=== PATIENT | female | born 1965 | race Caucasian/White ===

== ENCOUNTER 2023-06-23 13:56 | Outpatient (OUT) | payer OTHER, SELFPAY ==
--- NOTE | 2023-06-23 | CONS_ITS ---
CONSULTATION DATE: 06/23/2023 TO: Dr. Lundberg CHIEF COMPLAINT: Includes left hip pain. HISTORY: She reports the pain started spontaneously a few months ago. She now reports pain occurring at a level of approximately 5-7/10 pain when she walks for one mile. She needs to sit after walking one mile to help relieve her pain symptoms. Otherwise, her pain becomes progressive and has been unresponsive to ibuprofen 600 mg up to t.i.d. She denies any change in bowel and bladder habits or new sensorimotor changes in the lower extremities. EXAM: Her examination is notable for patient having no clinical radiculopathy or myelopathy involving the lower extremities. She had a negative FABERE?s sign; however, when performing left hip flexion with internal rotation, patient did have some groin pain on the left side. She did also have associated spasm of the left piriformis muscle. She appeared to have no involvement involving the gluteus medius. IMPRESSION: Our impression is patient has pain secondary to possible left hip pain, possibly related to a labral tear. She requests to proceed in a conservative route. RECOMMENDATIONS: We, therefore, recommend she consider starting meloxicam 15 mg p.o. daily to b.i.d., aquatic therapy and to discontinue her ibuprofen for the time being. She is to follow up with our office via telephone in one month?s time or sooner if needed. If she has no response with physical therapy with the use of meloxicam, may consider proceeding with an MRI of her left hip. As part of providing excellent, safe, comprehensive care, the following was completed at our patient's visit: 1. A medication reconciliation and review to ensure accurate knowledge of current/active medications, including asking our patients to inform us about any vvud-ryy-zpzyxdt medications or herbal remedies/nutritional supplements/alternative remedies. 2. A review to specifically ensure our patients have had annual screening for: elevated body mass index (BMI, see intake chart for exact total), tobacco use, screening for depression, and screening for unhealthy alcohol use. When screening is concerning, patients are provided with education and the specific recommendation to discuss the concerning health issue and treatment options with their primary care provider. JEAN PIERRE
== END 2023-06-23 13:57 | disposition home or self-care (01) ==
PROVIDERS: PCP Family Medicine; Visit Provider Anesthesiology Pain Medicine
DX: M25.552 Pain in left hip (principal)
CPT/HCPCS: G0463

== ENCOUNTER 2023-09-02 06:44 | Outpatient (OUT) | payer OTHER, SELFPAY ==
--- NOTE | 2023-09-02 06:46 | MR_ITS ---
The [address] [address] Patient Name: ANTONIO DAY MRN: [facility]:[id number] date: 1965 Sex: F Assigned Patient Location: MRI Current Patient Location: Accession/Order Number: [id number] Exam Date: 09/02/2023 06:50 Report Date: 09/03/2023 07:24 At the request of: SACIHN GARNETT Procedure: MR hip LT wo con EXAMINATION: MR hip LT wo con HISTORY: Left Hip Pain, Osteoarthritis COMPARISON: Plain x-ray 06/17/2023 TECHNIQUE: A comprehensive examination was performed utilizing a variety of imaging planes and imaging parameters to optimize visualization of suspected pathology. Images were performed without contrast. FINDINGS: FEMORAL HEAD: Normal. No AVN, fracture, or significant arthropathy. ACETABULUM: Normal. No fracture or significant arthropathy. OTHER BONES: Normal appearance of the visualized portion of the pelvis. LABRUM: Normal appearance for a patient in this age group, with no visible tear. EFFUSIONS: None. No synovitis or loose bodies. BURSAE: Normal. No evidence of iliopsoas or trochanteric bursitis. TENDONS: Normal. Normal gluteus tendons, iliopsoas tendon, and hamstring origin. MUSCLES: Normal. No tear or strain. No inappropriate atrophy. OTHER: 3 cm lesion identified in the lower uterine segment/cervix best seen on axial image #22 with peripheral soft tissue signal in central heterogeneous fluid signal MR/MR hip LT wo con IMPRESSION: No acute abnormality of the hip Lower uterine segment/cervix 3 cm cystic lesion with a thick wall. Further characterization with pelvic ultrasound is recommended Electronically authenticated by: ANOOP ALONZO Date: 09/03/2023 07:24
== END 2023-09-02 06:45 | disposition home or self-care (01) ==
LOC: MRI 06:44
PROVIDERS: PCP Family Medicine; Visit Provider Anesthesiology Pain Medicine
DX: M25.552 Pain in left hip (principal)
CPT/HCPCS: 73721

== ENCOUNTER 2023-09-11 12:57 | Outpatient (OUT) | payer OTHER, SELFPAY ==
--- NOTE | 2023-09-11 13:03 | US_ITS ---
The [address] [address] Patient Name: ANTONIO DAY MRN: [id number] date: 1965 Sex: F Assigned Patient Location: Current Patient Location: Accession/Order Number: [id number] Exam Date: 09/11/2023 13:04 Report Date: 09/12/2023 08:43 At the request of: GINNY BROWN Procedure: US pelvis w/ transvaginal EXAM: Pelvic ultrasound HISTORY: . Uterine Lesion N85.9 . COMPARISON: None. TECHNIQUE: Transabdominal and transvaginal scanning was performed FINDINGS: Scanning of the uterus demonstrates a retroverted uterus measuring 6.5 x 3.2 x 3.7 cm. Myometrium is heterogeneous in its echotexture. Endometrial complex measures 2 mm. Scanning of the cervix demonstrates a 1.4 x 1.3 x 0.5 cm cystic area in the cervix. Neither ovary was identified. No fluid was noted in the cul-de-sac. US/US pelvis w/ transvaginal IMPRESSION: 1. Normal-appearing retroverted uterus and normal endometrial complex. 2. There is a cystic structure within the cervix. Findings could represent a nabothian cysts. An inflammatory mass or neoplasm cannot entirely be excluded. Clinical correlation is suggested. 3. Neither ovary was identified. Electronically authenticated by: ANOOP LOU Date: 09/12/2023 08:43
--- OUTSIDE RECORDS SUMMARY | 2023-09-11 13:09 | XMS_ITS ---
Patient Summarization (C-CDA 2.1 CCD) Created on: September 11, 2023 EMA YANES : 1965 Sex: Female Author Organization Sample organization Care Team Providers Care Information Technology Intern Name Role Phone CHAYA NAJERA Attending Unavailab le Rosanna, Miguel Primary Care Unavailable XU, CHAYA ROCA Attending Unavailab le Rosanna, Miguel Primary Care Unavailable VALONE, MIGUEL UP Consulting Unavailabl e XU, CHAYA ROCA Attending Unavailab le Valone, Miguel Up [facility] Unavailabl e CHAYA NAJERA Consulting UnavailVILLA Linder Attending Unavaila ble Valone, Miguel Up [facility] Unavailabl e VILLA GLOVER Attending Unavaila ble Valone, [facility] Unavailabl e TU PRETTY Consulting Unavailable VALONE, MIGUEL UP Consulting Unavailabl e GLOVERVILLA BARRETO Attending Unavaila ble Valone, Miguel [facility] Unavailabl e VALONEMIGUEL Consulting Unavailabl e PROVIDER, UNKNOWN Admitting Unavailable PROVIDER, UNKNOWN Attending Unavailable PATIENT, SELF Referring Unavailable PROVIDER, UNKNOWN Admitting Unavailable PROVIDER, UNKNOWN Attending Unavailable PATIENT, SELF Referring Unavailable YESENIA GONZALEZ Admitting Unavailable YESENIA GONZALEZ Attending Unavailable YESENIA GONZALEZ Referring Unavailable PROVIDER, UNKNOWN Admitting Unavailable PROVIDER, UNKNOWN Attending Unavailable PATIENT, SELF Referring Unavailable PROVIDER, UNKNOWN Admitting Unavailable PROVIDER, UNKNOWN Attending Unavailable PATIENT, SELF Referring Unavailable YESENIA GONZALEZ Admitting Unavailable YESENIA GONZALEZ Attending Unavailable YESENIA GONZALEZ Referring Unavailable Kiran Tony Primary Care Physician [facility] Primary Care Unavailable Jorge A Menendez Attending Unavailable Jorge A Menendez Admitting Unavailable JORGE A MENENDEZ Attending Unavailable FADUMO CAST Attending Unavailable FADUMO CAST Referring Unavailable JORGE A MENENDEZ Attending Unavailable SACHIN GARNETT Referring Unava ilable KAFTAN JR, FADUMO R Primary Care Unavailable LAKSHMIPATHY, NARENDRANATH Referring Unava hiramable LYNNMATT JR, FADUMO R Primary Care Unavailable LAKSHMIPATHY, NARENDRANATH Referring Unava ilable ERICASHANTI JR, FADUMO R Primary Care Unavailable LAKSHMIPATHY, NARENDRANATH Referring Unava hiramable SEGUN JR, FADUMO R Primary Care Unavailable Angel Lundberg Attending Unavailable Angel Lundberg Admitting Unavailable Allergies Allergy Classification Reported Allergen(s) Allergy Type Date of Onset Reaction(s) Facility (1 source) Acetaminophen / HYDROcodone; Translations: [Vicodin] Drug Allergy [facility] Repository (1 source) carvedilol; Translations: [Coreg] Drug Allergy [facility] Repository (1 source) Acetaminophen / HYDROcodone; Translations: [HYDROCODONE-ACET AMINOPHEN] [facility] (2 sources) carvedilol; Translations: [CARVEDILOL] [facility] ([facility] sources) Lisinopril; Translations: [LISINOPRIL] Drug All[facility] Rep[facility] (2 sources) Adhesive Tape; Translations: [Tape] Drug allergy Unknown (qualifier value) [facility] (2 sources) Clarithromycin; Translations: [clarithromycin] Drug Allergy Unknown (qualifier value) [facility] (2 sources) levoFLOXacin; Translations: [levofloxacin] Drug Allergy Unknown (qualifier value) [facility] Encounters Encounter Date Encounter Type Care Provider Facility Start: 09-08-2023 End: 09-08-2023 ambulatory Angel Lundberg Facility[facility] Start: 08-31-2023 ambulatory [facility]ATH [facility] Start: 08-06-2023 End: 08-06-2023 ambulatory FADUMO CAST Not Available Start: 07-28-2023 End: 08-22-2023 [facility] Start: 06-24-2023 End: 07-22-2023 [facility] Start: 06-17-2023 End: 06-17-2023 ambulatory [facility]ENDRANATH [facility] Start: 02-23-2023 End: 02-23-2023 ambulatory JORGE A Vijay ITZMICHELLEWITZ Not Available Start: 02-23-2023 End: 02-23-2023 ambulatory Howard Mast [facility] Facility:[facility] Start: 02-05-2023 End: 02-05-2023 ambulatory JORGE A H ITZKOWITZ Not Available Start: 11-07-2021 End: 11-07-2021 Lab Drop off Angel Lundberg [facility] Start: 11-21-2019 End: 11-21-2019 Patient encounter procedure UNKNOWN PROVIDER Facility:[facility] Start: 11-14-2019 End: 11-14-2019 Patient encounter procedure YESENIA GONZALEZ Facility:[facility] Start: 11-02-2019 Patient encounter procedure UNKNOWN PROVIDER Facility:[facility] Start: 10-12-2019 End: 10-12-2019 Patient encounter procedure UNKNOWN PROVIDER Facility:[facility] Start: 10-03-2019 End: 10-03-2019 Patient encounter procedure YESENIA GONZALEZ Facility:[facility] Start: 09-14-2019 End: 09-14-2019 Patient encounter procedure UNKNOWN PROVIDER Facility:[facility] Start: 01-19-2019 End: 01-19-2019 [facility] Start: 01-12-2019 End: 01-13-2019 Patient encounter procedure [facility] Facility:[facility] Start: 01-11-2019 Patient encounter procedure VILLA [place] [place] Facility:[facility] Start: 12-30-2018 End: 12-30-[address] Facility:[facility] Start: 12-08-[address] [facility] Facility:[facility] Start: 11-23-2018 End: 11-24-[address] [facility] Facility:[facility] Immunizations Immunization Date Immunization Notes Care Provider Fa cility 06-20-2020 SARS-CoV-2 (COVID-19 ) mRNA BNT-162b2 alpesh Lundberg [facility] 05-23-2020 SARS-CoV-2 (COVID-19 ) mRNA BNT-162b2 alpesh Lundberg [facility] Medications Current Medications Medication Drug Class(es) Dates Sig (Normalized) Sig (Original) ALPRAZolam 1 mg disintegrating oral tablet (1 source) Benzodiazepine Start: 1 take 1 tablet by mouth three times daily as needed for anxiety alprazolam 1 mg oral tablet, disintegrating 1 mg = 1 tab(s), Oral, TID, PRN for anxiety, Refills(s) 0 Start Date: 10/15/20 Status: Ordered Biotin (1 source) Start: 1 biotin Oral, Daily, Refills(s) 0 Start Date: 10/15/20 Status: Ordered calcium carbonate 1625 mg / cholecalciferol 0.0125 mg / vitamin k 0.04 mg chewable tablet (1 source) Vitamin D Start: 1 Viactiv Soft Calcium Chews oral tablet Refill(s) 0 Start Date: 10/15/20 Status: Ordered Centrum Silver (1 source) Start: 1 Centrum Silver Oral, Daily, Refill(s) 0 Start Date: 10/15/20 Status: Ordered D3 (1 source) Start: 1 take 1 ug by mouth once daily D3 mcg, Oral, Daily, Refills(s) 0 Start Date: 10/15/20 Status: Ordered escitalopram 20 mg oral tablet (1 source) Serotonin Reuptake Inhibitor Start: 1 take 1 mg by mouth once daily escitalopram 20 mg Tab mg tab(s), Oral, Daily, Refills(s) 0 Start Date: 10/15/20 Status: Ordered estradiol 0.1 mg/ml vaginal cream (1 source) Estrogen Start: 1 estradiol 0.1 mg/g vaginal cream 1 gm, Vaginal, MonWedFri, # 42.5 gm, Refills(s) 6, [facility]: [facility], 155, cm, 10/15/20 12:39:00 EDT, Height/Length Dosing, 66, kg, 10/15/20 12:39:00 EDT, Weight Dosing Start Date: 10/15/20 Status: Ordered hydroCHLOROthiazide 12.5 mg / irbesartan 150 mg oral tablet (1 source) Thiazide Diuretic, Angiotensin 2 Receptor Keila Start: 1 take 1 tablet by mouth once daily hydrochlorothiazid e-irbesartan 12.5 mg-150 mg Tab tab(s), Oral, Daily, Refill(s) 0 Start Date: 10/15/20 Status: Ordered levothyroxine sodium 0.1 mg oral tablet (1 source) l-Thyroxine Start: 1 take 1 tablet by mouth once daily levothyroxine 100 mcg (0.1 mg) Tab mcg tab(s), Oral, Daily, Refills(s) 0 Start Date: 10/15/20 Status: Ordered omeprazole 40 mg delayed release oral capsule (1 source) Proton Pump Inhibitor Start: 1 take 1 mg by mouth once daily omeprazole 40 mg Cap-DR mg cap(s), Oral, Daily, Refills(s) 0 Start Date: 10/15/20 Status: Ordered sucralfate 1000 mg oral tablet (1 source) Aluminum Complex Start: 1 sucralfate 1 g Tab gm tab(s), Oral, QIDACHS, Refills(s) 0 Start Date: 10/15/20 Status: Ordered tiZANidine 4 mg oral tablet (1 source) Central alpha-2 Adrenergic Agonist Start: 1 take 1 mg by mouth every eight hours tiZANidine 4 mg Tab mg tab(s), Oral, q8hr, Refills(s) 0 Start Date: 10/15/20 Status: Ordered traMADol hydrochloride 50 mg oral tablet (1 source) Opioid Agonist Start: 1 take 1 mg by mouth every six hours traMADOL 50 mg Tab mg tab(s), Oral, q6hr, Refills(s) 0 Start Date: 10/15/20 Status: Ordered vitamin B12 (1 source) Vitamin B12 Start: 1 Vitamin B12 Refills(s) 0 Start Date: 10/15/20 Status: Ordered Completed/Discontinued Medications Medication Drug Class(es) Dates Sig (Normalized) Sig (Original) cephalexin 500 mg oral capsule (1 source) Cephalosporin Antibacterial Start: 10-15-2020 take 1 capsule by mouth once daily Keflex 500 mg Cap 500 mg = 1 cap(s), Oral, BID, Take 1 cap twice a day for 5 days and then 1 cap once a day, # 40 cap(s), Refills(s) 0, Pharmacy: [facility], 155, cm, 10/15/20 12:39:00 EDT, Height/Length Dosing, 66, kg, 10/15/20 12:39:00 EDT, Weight Dosing Start Date: 10/15/20 Status: Ordered Payers Date Payer Category Payer Self-pay 2019 Private Health Insurance [id number] 2019 Private Health Insurance [id number] 2019 Private Health Insurance [id number] 2018 Unknown 1965 Unknown [id number] 2.16.8 40.1.564051.3.579.2. 1965 Unknown [id number] 2.16.8 40.1.566596.3.579.2. 1965 Unknown [id number] 2.16.8 40.1.607055.3.579.2. 1965 Unknown [id number] 2.16.8 40.1.762537.3.579.2. 1965 Unknown [id number] 2.16.8 40.1.892998.3.579.2. 1965 Unknown [id number] 2.16.8 40.1.441354.3.579.2. 1965 Unknown [id number] 2.16. 840.1.229010.3.579.2. 1965 Unknown [id number] 2.16. 840.1.433871.3.579.2. 1965 Unknown [id number] 2.16. 840.1.097956.3.579.2. 1965 Unknown [id number] 2.16. 840.1.433739.3.579.2.732 1965 Unknown [id number] 2.16. 840.1.200294.3.579.2.732 1965 Unknown [id number] 2.16. 840.1.173812.3.579.2.732 1965 Unknown [id number] 2.16.84 0.1.408872.3.579.2.1259 1965 Unknown [id number] 2.16.840 .1.830032.3.579.2.1259 1965 Unknown [id number] 2.16.840 .1.855548.3.579.2.1259 1965 Unknown [id number] 2.16.8 40.1.086681.3.579.2.1286 1965 Unknown [id number] 2.16.8 40.1.368959.3.579.2.6 1965 Unknown [id number] 2.16.8 40.1.692203.3.579.2.1286 1965 Unknown [id number] 2.16.8 40.1.153040.3.579.2.1286 1965 Unknown [id number] 2.16.8 40.1.479936.3.579.2.727 Unknown [id number] 2.16.8 40.1.210109.3.579.2.531 Problems Problem Classification Problem Date Documented Date Episodic/Chronic Disorders of lipid metabolism (1 source) Hypercholesterolemia 10-15-2020 Chronic Essential hypertension (1 source) Hypertensive disorder 10-15-2020 Chronic Glaucoma (1 source) Glaucoma 10-15-2020 Chronic Headache; including migraine (1 source) Headache 10-15-2020 Episodic Mood disorders (1 source) Depressive disorder 10-15-2020 Chronic Osteoarthritis (1 source) Arthritis 10-15-2020 Chronic Other and unspecified benign neoplasm (1 source) Polyp of colon; Translations: [Polyp of colon] Onset: 3 Episodic Other liver diseases (1 source) Disease of liver 10-15-2020 Chronic Other non-traumatic joint disorders (1 source) Pain in left hip; Translations: [Pain in left hip] Onset: Episodic Substance-related disorders (1 source) Smoker 10-15-2020 Chronic Comment on above: Added secondary to d ocumentation in Social History. Thyroid disorders (1 source) Hyperthyroidism 10-15-2020 Chronic Procedures Date Procedure Procedure Detail Performing Clinician Start: 10-12-2019 SURGICAL CASE REQUEST U NKNOWN PROVIDER Start: 09-14-2019 SURGICAL CASE REQUEST U NKNOWN PROVIDER Bypass of stomach Angel fatima Colonoscopy Angel Lundberg Extraction of cataract Angel Lundberg H/O: hysterectomy Angel fatima History of cholecystectomy J torinrichi Lundberg Procedure on back Angel fatima Tonsillectomy Angel Lundberg Results Test Name Value Interpretation Reference Range Facility Physician Orderon 09-09-2023 Physician Order [id number] Normal [facility] XR HIP LT 2-3 VIEWS W OR WO PELVISon 06-19-2023 XR HIP LT 2-3 VIEWS W OR WO PELVIS XR HIP LT 2-3 VIEWS W OR WO PELVIS HISTORY: A 57-year-old female with the history of the left hip pain for 2 months. TECHNIQUE: AP view of pelvis with left hip: 3 views COMPARISON: No relevant prior studies are available for comparison. FINDINGS: There is no evidence of fracture, dislocation or acute bony pathology. There are degenerative changes in the lumbar spine. Both sacroiliac joints are intact. Both ischio-pubic rami are intact. Both hip joints are intact. No bony destruction is seen. IMPRESSION: * No evidence of fracture, bony destruction or acute bony pathology. * Both hip joints are intact. * Degenerative arthritis in the lower lumbar spine. Finalized by Daniel Nunez MD on 06/19/2023 5:44 PM Normal [facility] 02-23-2023 L ---- Specimen: [id number] Received: 02/23/23 Status: MINA Pendleton Num: [id number] Spec Type: Surgical Subm Dr: Jorge A Menendez DO Tissues: A Colon Biopsy (POLYP HEPATIC FLEXURE) B Colon Biopsy (POLYP ASC) Procedures: MARIO/Quin Perez/Danyell L4/2 Age/ Patient Sex Location Account Attending Physician Ema Yanes/F SHAWNA [id number] Jorge A Menendez DO SPEC NUM: [id number] RECD: 02/23/23 STATUS: MINA PENDLETON NUM: [id number] RENÉ: 02/23/23- SUBM DR: Jorge A Menendez DO ENTERED: 02/23/23 [facility] DR: Alejandro [facility] SPEC TYPE: Surgical DEPT: S ORDERED: HE/4, Gross/Micro L4/2 ORDERED: HE/4, Gross/Micro L4/2 Pathological Diagnosis A. Colon, hepatic flexure, polyp, biopsy: - Tubular adenoma B. Colon, ascending, polyp, biopsy: - Tubular adenoma Clinical Information Family history of colon cancer Gross Description A. Received in formalin labeled with the patient's name, date of and polyp hepatic flexure is one mccullough tissue measuring 0.5 x 0.2 x 0.2 cm admixed with fecal material. Entirely submitted in one cassette labeled A1. B. Received in formalin labeled with the patient's name, date of and polyp ascending colon is one mccullough tissue measuring 0.3 cm, admixed with fecal material. Entirely submitted in one cassette labeled B1. Specimen: [id number] Received: 02/23/23 Status: MINA Pendleton Num: [id number] Spec Type: Surgical Subm Dr: Jorge A Menendez DO Tissues: A Colon Biopsy (POLYP HEPATIC FLEXURE) B Colon Biopsy (POLYP ASC) Procedures: HE/4, Gross/Micro L4/2 Patient: Ema Yanes [id number] (Continued) Specimen: [id number] Received: 02/23/23 (Continued) Signed (signature on file) Yomi Lester MD 02/25/23 0948 Specimen: [id number] Received: 02/23/23 Status: MINA Pendleton Num: [id number] Spec Type: Surgical Subm Dr: Jorge A Menendez DO Tissues: A Colon Biopsy (POLYP HEPATIC FLEXURE) B Colon Biopsy (POLYP ASC) Procedures: MARIO/Chris, Quin/Micro L4/2 Patient: Ema Yanes [id number] (Continued) Specimen: [id number] Received: 02/23/23 (Continued) Microscopic Description A. Two H E slides reviewed. The microscopic examination confirms the diagnosis. B. Two H E slides reviewed. The microscopic examination confirms the diagnosis. CPT Codes 44790i2 Specimen: [id number] Received: 02/23/23 Status: MINA Keerthi Num: [id number] Spec Type: Surgical Subm Dr: Jorge A Menendez DO Tissues: A Colon Biopsy (POLYP HEPATIC FLEXURE) B Colon Biopsy (POLYP ASC) Procedures: MARIO/Chris, Gross/Micro L4/2 Patient: Ema Yanes [id number] (Continued) Signed (signature on file) Yomi Lester MD 02/25/23 0948 [facility] Neurosurgery [place] 03-09-2019 Neurosurgery Office/Clinic Note Chief Complaint PT STATES- POST OP (01/19 LUMBAR MICRODISC) History of Present Illness Patient is a pleasant 53-year-old female with a history of hypertension and hyperlipidemia, who presents to the outpatient neurosurgical clinic today for continued postoperative follow-up. Patient is status post left L5-S1 MIS microdiscectomy performed 01/19/[address] Glover secondary to a large interannular disc herniation at left L5-S1 with resultant intractable left S1 radiculopathy. Patient has done well postoperatively and experienced a grossly uncomplicated postoperative course. Today, patient reports complete resolution of her preoperative left lower extremity radicular pain syndrome. Since time of last office visit, she has completed a course of postoperative physical therapy without difficulty and remains very pleased with her outcome. She denies significant low back pain. She denies gluteal pain or lower extremity radicular pain. She denies numbness or paresthesias in the lower extremities. She denies motor weakness in the lower extremities. She denies bowel/bladder incontinence or saddle paresthesias. Patient denies incisional pain or incisional problems. She denies headaches. She denies fevers, chills, nausea, or vomiting. She states her appetite and energy level are good. Patient is no longer requiring narcotic support. Review of Systems Constitutional: [No fevers, chills, sweats] Eye: [No recent visual problems] Respiratory: [No shortness of breath, cough] Vascular: [No edema, erythema, discoloration] Cardiovascular: [No Chest pain, palpitations, syncope] Neuro: [No headaches, dizziness] Gastrointestinal: [No nausea, vomiting, diarrhea] Genitourinary: [No hematuria] Physical Exam Vitals & Measurements BP: 122/78 HT: 162 cm WT: 72 kg DOSE WT: 72 kg BMI: 27.43 Additional Vitals No qualifying data available. General: [Alert and oriented, well nourished, no acute distress]. Eye: [normal conjunctiva, no scleral icterus]. HENT: [normocephalic, atraumatic, oral mucosa pink and moist, dentition intact]. Neck: [Supple]. Pulmonary: [non-labored respiration]. Cardiovascular: [no edema, strong pulses with rapid capillary refill]. Skin: [Normal temperature and texture; no rashes; no digit clubbing or cyanosis]. Psychiatric: [Appropriate judgment and insight, appropriate mood and affect]. Lumbar incision is well-healed without surrounding erythema, edema, induration, or tenderness to palpation. Good approximation of incision borders without drainage or dehiscence. Lumbosacral and gluteal regions are without significant myospasms. No tenderness to palpation. Good range of motion of the lumbosacral spine without pain. No lumbar neurotension signs with negative straight leg raise, reverse straight leg raise, and femoral stretch test bilaterally. Muscle strength is 5/5 and equal bilateral lower extremities. DTRs are 2 out of 4 and equal bilateral lower extremities. Gait is normal with full ability to toe and heel walk. Assessment/Plan 1. Status post lumbar surgery 2. Lumbar disc herniation 3. Lumbar radiculopathy At this time, patient is approximately 7 weeks postop from left L5-S1 MIS microdiscectomy. She has done well postoperatively with resolution in her preoperative left lower extremity radicular syndrome and is very pleased with her outcome. Her incision has healed well without suggestion of infectious complications and she has completed a course of postoperative physical therapy without difficulty. That said, patient will be released to return to a moderate adult lifestyle. She is encouraged to avoid lifting/pushing/pulling more than 30-40 pounds and to avoid extreme activities. Patient is reminded that she may continue to shower, but should avoid submerging her incision in water such as pools, bath tubs, or hot tubs for a minimum of 8 weeks postoperatively. Patient will be released to follow up in our office on an as-needed basis, but is encouraged to call with changes, problems, or concerns. Patient states understanding and is in agreement with the above-stated plan. Patient's case is discussed with Dr. Glover who is in agreement with the above-stated plan. Problem List/Past Medical History Ongoing Abnormal Pap smear of cervix Allergic rhinitis Degenerative disc disease, lumbar Hypercholesterolemia Hypertension Lumbar disc herniation Lumbar radiculopathy Seasonal allergies Snores Status post lumbar surgery Historical No qualifying data Procedure/Surgical History Ambulatory surgery Check colonoscopy (2012) Lumbar/Sacral Transforaminal Epidural Steroid Injection (Left) (12/14/2018) Lumbar/Sacral Transforaminal Epidural Steroid Injection (Left) (12/30/2018) Discectomy Lumbar-MIS (Left) (01/19/2019) Medications Flonase, Nasal, Daily, PRN folic acid, 0.4 mg, Oral, Daily Lipitor 40 mg oral tablet, 40 mg, 1 tabs, Oral, Daily multivitamin, Daily Norvasc 2.5 mg oral tablet, 2.5 mg, 1 tabs, Oral, Daily Singulair 10 mg oral tablet, 10 mg, 1 tabs, Oral, Daily, PRN Vitamin C, Daily Allergies Coreg (heart race) Vicodin (Itching) Social History Alcohol Current, 1-2 times per month 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 Exercise Exercise type: Walking. Home/Environment Lives with Spouse. Living situation: Home/Independent. 1 CAT Nutrition/Health Regular, Caffeine intake amount: DENIES. Sleeping concerns: No. Sexual History of sexual abuse: No. Substance Abuse Denies All Tobacco Never (less than 100 in lifetime) Use:. Family History Alzheimer's disease: Mother. Cancer of colon: Mother. Skin cancer: Father. Diagnostic Results No qualifying data available (XRay) No qualifying data available (CT) No qualifying data available (Ultrasound) No qualifying data available (MRI) Electronically signed by _ Anna Beard PA-C 03/09/19 11:[address] [facility] Provider Letteron 03-09-2019 Provider Letter (Inserted Image. Lisa ble to display) Miguel Marte, [address] [place] [address] Re: Ema Yanes Date of Visit: 03/09/2019 Dear Miguel Marte, Thank you for referring Ema to our office. Attached you will find my office note and my findings. Please let me know if you have any questions or concerns. Sincerely, Anna Beard PA-C [facility] [address] The following document(s) were included in the letter: March 09, 2019 11:22:31 EST - (03/09/2019) Office Visit Note Letter Sent Electronically signed by _ Shaniqua Ochoa 03/09/19 13:[address] [facility] Neurosurgery [place] 02-09-2019 Neurosurgery Office/Clinic Note Chief Complaint PT STATES- POST OP 01/19 LUMBAR MICRODISC) History of Present Illness Patient is a pleasant 53-year-old female with a history of hypertension and hyperlipidemia, who presents to the outpatient neurosurgical clinic today accompanied by her , for postoperative follow-up. Patient is status post left L5-S1 MIS microdiscectomy performed 01/19/[address] Glover secondary to a large interannular disc herniation at left L5-S1 with resultant intractable left S1 radiculopathy. Patient has done well postoperatively and experienced a grossly uncomplicated postoperative course. She did contact our office in the postoperative period (01/24/19) with complaints of bruised sensation in the left posterior calf/popliteal fossa prompting recommendations for a left lower extremity venous Doppler. This was completed 01/24/19 was negative for DVT. Today, patient states she is doing well and is very pleased with her progress. She reports resolution of her preoperative left lower extremity radicular pain syndrome. She denies significant low back pain. She denies gluteal pain or lower extremity radicular pain. She denies numbness or paresthesias in the lower extremities. She denies motor weakness in the lower extremities. She denies bowel/bladder incontinence or saddle paresthesias. Patient denies incisional pain or incisional problems. She denies headaches. She denies fevers, chills, nausea, or vomiting. She states her appetite and energy level are good. Patient is no longer requiring narcotic support. Review of Systems Constitutional: [No fevers, chills, sweats] Eye: [No recent visual problems] Respiratory: [No shortness of breath, cough] Vascular: [No edema, erythema, discoloration] Cardiovascular: [No Chest pain, palpitations, syncope] Neuro: [No headaches, dizziness] Gastrointestinal: [No nausea, vomiting, diarrhea] Genitourinary: [No hematuria] Physical Exam Vitals & Measurements BP: 124/72 HT: 162 cm WT: 70 kg DOSE WT: 70 kg BMI: 26.67 Additional Vitals No qualifying data available. General: [Alert and oriented, well nourished, no acute distress]. Eye: [normal conjunctiva, no scleral icterus]. HENT: [normocephalic, atraumatic, oral mucosa pink and moist, dentition intact]. Neck: [Supple]. Pulmonary: [non-labored respiration]. Cardiovascular: [no edema, strong pulses with rapid capillary refill]. Skin: [Normal temperature and texture; no rashes; no digit clubbing or cyanosis]. Psychiatric: [Appropriate judgment and insight, appropriate mood and affect]. Lumbar incision is well-healed without surrounding erythema, edema, induration, or tenderness to palpation. Good approximation of incision borders without drainage or dehiscence. Lumbosacral and gluteal regions are without significant myospasms. No tenderness to palpation. Good range of motion of the lumbosacral spine without pain. No lumbar neurotension signs with negative straight leg raise, reverse straight leg raise, and femoral stretch test bilaterally. Muscle strength is 5/5 and equal bilateral lower extremities. DTRs are 2 out of 4 and equal bilateral lower extremities. Gait is normal with full ability to toe and heel walk. Assessment/Plan 1. Status post lumbar surgery Ordered: Referral to Physical Therapy 2. Lumbar radiculopathy Ordered: Referral to Physical Therapy 3. Lumbar disc herniation Ordered: Referral to Physical Therapy Orders: External Referral At this time, patient is approximately 3 weeks postop from left L5-S1 MIS microdiscectomy. She has done well postoperatively with resolution in her preoperative left lower extremity radicular syndrome and is very pleased with her progress thus far. Her incision has healed well without suggestion of infectious complications. That said, patient will be released to sit, drive, and lift up to 10 pounds. She is encouraged to continue to ambulate, but should not participate in any heavier physical activities and walking. 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 Patient is reminded that she may continue to shower, but should avoid submerging her incision in water such as pools, bath tubs, or hot tubs for a minimum of 8 weeks postoperatively. Patient will be referred for a course of postoperative physical therapy. She will follow up in our office in 4-5 weeks, but is to call sooner changes, problems, or concerns. Patient states understanding and is in agreement with the above-stated plan. Patient's case is discussed with Dr. Glover who is in agreement with the above-stated plan. Problem List/Past Medical History Ongoing Abnormal Pap smear of cervix Allergic rhinitis Degenerative disc disease, lumbar Hypercholesterolemia Hypertension Lumbar disc herniation Lumbar radiculopathy Seasonal allergies Snores Status post lumbar surgery Historical No qualifying data Procedure/Surgical History Ambulatory surgery Check colonoscopy (2012) Lumbar/Sacral Transforaminal Epidural Steroid Injection (Left) (12/14/2018) Lumbar/Sacral Transforaminal Epidural Steroid Injection (Left) (12/30/2018) Discectomy Lumbar-MIS (Left) (01/19/2019) LOW BACK DISK SURGERY (01/19/2019) Medications Flonase, Nasal, Daily, PRN folic acid, 0.4 mg, Oral, Daily gabapentin 100 mg oral capsule, 1-2 caps, Oral, HS (at bedtime) Lipitor 40 mg oral tablet, 40 mg, 1 tabs, Oral, Daily multivitamin, Daily Norvasc 2.5 mg oral tablet, 2.5 mg, 1 tabs, Oral, Daily Singulair 10 mg oral tablet, 10 mg, 1 tabs, Oral, Daily, PRN Vitamin C, Daily Allergies Coreg (heart race) Vicodin (Itching) Social History Alcohol Current, 1-2 times per month 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 Exercise Exercise type: Walking. Home/Environment Lives with Spouse. Living situation: Home/Independent. 1 CAT Nutrition/Health Regular, Caffeine intake amount: DENIES. Sleeping concerns: No. Sexual History of sexual abuse: No. Substance Abuse Denies All Tobacco Never (less than 100 in lifetime) Use:. Family History Alzheimer's disease: Mother. Cancer of colon: Mother. Skin cancer: Father. Diagnostic Results No qualifying data available (XRay) No qualifying data available (CT) No qualifying data available (Ultrasound) No qualifying data available (MRI) Electronically signed by _ Anna Beard PA-C 02/09/19 14:[address] [facility] Provider Letteron 02-09-2019 Provider Letter (Inserted Image. Lisa ble to display) Miguel Marte, [facility] [place] [address] Re: Ema Joaquín Date of Visit: 02/09/2019 Dear Miguel Marte, Thank you for referring Ema to our office. Attached you will find my office note and my findings. Please let me know if you have any questions or concerns. Sincerely, Anna Beard PA-C [facility] [address] [address] The following document(s) were included in the letter: February 09, 2019 14:29:00 EST - (02/09/2019) Office Visit Note Letter sent Electronically signed by _ Elaine Thornton 02/10/19 09:[address] [facility] Operative Reporton 10-30-201 9 Operative Report Indication for Surge ry Intractable left S1 radiculopathy secondary to large interannular disc herniation left L5-S1 Preoperative Diagnosis Same Postoperative Diagnosis Same Operation Left L5-S1 lumbar microdiscectomy; minimally invasive surgical technique using MysteryDrix tubular retractor 5 cm ?22 mm; microscope for microdissection Surgeon(s) Villa Glover Rough Rice Grader Molly FRITZ Anesthesia General anesthetic via endotracheal tube Estimated Blood Loss . 20 mL Urine Output None Findings Large interannular disc herniation with ventral impingement of the S1 root along the majority of its course from shoulder to pedicle Specimen(s) None-grossly normal degenerated disc Complications None Technique History: Very pleasant 53-year-old female who presents to the neurosurgery clinic with a several month history of progressively worsening left S1 radiculopathy. She is strongly positive neurotension signs and decreased tone at the ankle as well as depressed Achilles reflex but maintained motor power. In light of the failure of conservative measures, patient is strongly interested in definitive measures. She is made aware of the above-mentioned procedure and the risks thereof including the risk of procedure including infection, bleeding, CSF leak, neurologic injury, neuropathic pain syndrome, peridural fibrosis, failure for improvement, incomplete benefit, new neurologic deficit, spinal instability, coma, , paralysis, deep venous thrombosis, pulmonary embolism as well as recurrent disc herniation and reoperation, either delayed or acute. Patient is in strong agreement and wished to proceed-written consent was obtained Procedure: Patient is brought into the operating room and general anesthetic is induced through atraumatically placed endotracheal tube. Venous access is secured and patient was turned onto [facility] operative table with a Cb frame and placed in the prone position. Head and neck are placed in neutral position and arms are placed on arm boards with neurovascular bundles unencumbered. Lumbar region is cleaned with alcohol and dried and 18-gauge spinal needles placed adjacent to level of interest. Flouroscopy is confirmatory for level and proposed skin incision is scribed 1.5 cm to the left of midline straddling the L5-S1 interspace. Excess hair is clipped with electric clippers. Patient received IV antibiotics. Surgical region is prepped and draped in usual fashion. After appropriate side, site, patient identified in timeout maneuver is performed, full-thickness skin incision is carried down to the thoracolumbar fascia using 10 bladed knife and monopolar cautery. Fascia is incised using cutting current monopolar cautery. Blunt end of the K wire is passed to the interlaminar space of L5-S1, left side. Serial dilation using Metrix dilators is then performed until a 5 cm ? 22 mm diameter tubular retractor can be docked at the lamino- facet complex of L5-S1, left side. This is attached to table mounted Armature. Muscular plug is removed with monopolar cautery and pituitary rongeur. Microscope was brought in for microdissection requirements. Fluoroscopy is confirmatory for level. High-speed electric drill was used to perform a generous laminotomy of L5 as well as a medial facetectomy involving the medial quarter of the inferior articular process of L5. This demonstrates ligamentum flavum which is detached from the superior leading edge of the S1 lamina which then undergoes laminotomy laterally to the pedicle of S1 and then cephalad to resect the medial quarter of the superior articular process of S1. Ligamentum flavum is elevated with right angle hook and removed in piecemeal fashion using Kerrison punch of 2 and 3 mm in size. Then, careful dissection immediately lateral to the root identifies venous epidural plexus which is controlled using low current bipolar cautery and division with microscissors. This allows for mobilization of the nerve root medial using Asst. with bayoneted nerve root retractor so as to allow identification of large interannular disc protrusion causing marked ventral elevation and impingement on the S1 nerve root. Once sufficiently medialized, the root was protected and the microscissors was used to incise the annulus which then allows a right angle hook to liberate and thereby deliver a 1.3 x 1.4 cm herniated mass of nucleus pulposis which is removed using pituitary rongeur. Several small fragments in the subannular space are identified and removed which decompress his neural elements. A 6-8 mm horizontal tear in the annulus is discovered with direct medication into the nucleus, therefore internal decompression is not performed with a variety of pituitary rongeur and all immanently herniatable material is thereby removed, mitigating reherniation syndrome. Once loose material is removed, disc space is irrigated with antibody solution to wash any loose material out and none is encountered. Epidural space is explored and no further extrinsic compression on the neural elements are found. The wound is copiously irrigated with 500 mL of antibiotic solution. Powdered vancomycin is then tested over the epidural space and tubular retractor was slowly withdrawn using bipolar cautery to control any muscular bleeding and all hemostatic agents removed. Surgical tract is dusted with powdered vancomycin. Fascia is reapproximated using 0 Vicryl in interrupted fashion. Subcutaneous tissues are reirrigated and dusted with powdered vancomycin followed by closure using 0 Vicryl and 3-0 Vicryl in inverted interrupted fashion. Marcaine, half percent with epinephrine, is infiltrated in the subcutaneous tissues followed by sterile dressing. Patient is then turned onto awaiting operative gurney and extubated and taken recovery for monitoring. No known complications of surgery. This surgical procedure was assisted by my physician?s cosmetic sales assistant. Her presence was needed throughout the case for manipulation and positioning the surgical arm as well as positioning the surgical instruments as well as primarily assisting me through procedure. Due to the complexity of condition, the skill set of an neurosurgical physician cosmetic sales assistant was needed throughout the case. During the surgical case, the opthalmic tech was working the back table and was not available for assistance. Tourniquet Time None Sponge/Needle Count Per nursing correct Fluid Count 1300 mL crystalloid Electronically signed by _ Adalberto HODGE MD, [facility] Roca 01/19/19 10:[address] [facility] Provider Letteron 01-19-2019 Provider Letter (Inserted Image. Lisa ble to display) Miguel Marte, [address] [place] [address] Re: Ema Yanes Date of Visit: 01/19/2019 Dear Miguel Marte, Let me know if you have any questions or concerns. Sincerely, Villa Glover III MD C C Providers: The following document(s) were included in the letter: January 19, 2019 10:03:54 EDT - (01/19/2019) Neurosurgery operative note Normal [facility] XR Spine Lumbosacral 1 View in ORon 01-19-2019 XR Spine Lumbosacral 1 View in OR Procedure: Intraoperative lumbar spine fluoroscopy. Images: Two lateral intraoperative fluoroscopic image holds of the lumbar spine. Fluoroscopy: Three seconds (1.9 mGy). Clinical Information: 53-year-old female with left lumbar microdiscectomy. Comparison: Lumbar spine radiographs 11/23/2018. Findings: Bones: No gross subluxation at L4-5 or L5-S1. Intervertebral discs: Intact height at L4-5 and L5-S1. Facet joints: Grossly mild to moderate L4-5 and L5-S1 degenerative osteoarthrosis. Soft tissues: Surgical hardware in the posterior soft tissues at the level of L5-S1. IMPRESSION: Intraoperative changes of the lumbar spine. Final Dictated by: Db Oviedo MD Dictated DT/TM: 01/19/2019 12:16 pm Signed by: Db Oviedo MD Signed (Electronic Signature): 01/19/2019 12:17 pm (If Report Is Signed, Electronically Signed in Other Vendor System) Normal [facility] .UA Microscp Aon 01-12-2019 UA Hyline Cast Qual 6-[address] [facility] Comment on above: Performed By: #### C [id number] ####[address] [address] UA Mucus Present Abnormal Absent [facility] Comment on above: Performed By: #### C [id number] ####[address] [address] UA RBC Quant 2 /HPF Normal 0-[address] [facility] Comment on above: Performed By: #### C [id number] ####[address] [address] UA WBC Quant 2 /HPF Normal 0-[address] [facility] Comment on above: Performed By: #### C [id number] ####[address] [address] .eGFRon 01-12-2019 eGFR AA >60 Normal >=[address] [facility] Comment on above: Result Comment: Resu lt = 0-14.9 mL/min/1.73 m2 Kidney failure or Dialysis Result = 15-29 mL/min/1.73 m2 Severe decrease in GFR Result = 30-59 mL/min/1.73 m2 Moderate decrease in GFR Result >= 60 mL/min/1.73 m2 Normal or increased GFR Performed By: #### E GFR ####[place] [address] eGFR Non-AA >60 Normal >=[address] [facility] Comment on above: Result Comment: Resu lt = 0-14.9 mL/min/1.73 m2 Kidney failure or Dialysis Result = 15-29 mL/min/1.73 m2 Severe decrease in GFR Result = 30-59 mL/min/1.73 m2 Moderate decrease in GFR Result >= 60 mL/min/1.73 m2 Normal or increased GFR Chronic kidney disease is defined as either kidney damage or GFR < 60 mL/min/1.73 m2 for >= 3 months. Kidney damage is defined as pathologic abnormalities or markers of damage including abnormalities in blood or urine tests or imaging studies. This GFR is NOT used for medication dosing. Performed By: #### E GFR ####[place] [id number] ABO/Rhon 01-12-2019 ABO/Rh SD 01.19.19 DCon: 0 ABO/Rh: O POS Normal [facility] Comment on above: Performed By: #### A BORH ####[facility] (DEFAULT)[address] [place], [place] [address] [address] ABSC Autoon 01-12-2019 ABSC Auto Negative Normal [facility] Comment on above: Performed By: #### A SA ####[place] [id number] CBC w/ Diffon 01-12-2019 Erythrocyte distribution width (RBC) [Ratio] 14.5 % Normal 11.6-14.[address] [facility] Comment on above: Performed By: #### C BC ####[place] [id number] Hematocrit (Bld) [Volume fraction] 42.8 % Normal 36.0-46.[address] [facility] Comment on above: Performed By: #### C BC ####[place] [id number] Hemoglobin (Bld) [Mass/Vol] 14.1 g/dL Normal 12.0-16.[address] [facility] Comment on above: Performed By: #### C BC ####[place] [id number] MCH (RBC) [Entitic mass] 30.5 pg Normal 27.0-35.[address] [facility] Comment on above: Performed By: #### C BC ####[place] [id number] MCHC (RBC) [Mass/Vol] 32.9 % Normal 31.0-37.[address] [facility] Comment on above: Performed By: #### C BC ####[address] [address] MCV (RBC) [Entitic vol] 92.6 fL Normal 80.0-100.[address] [facility] Comment on above: Performed By: #### C BC ####[address] [address] Platelet mean volume (Bld) [Entitic vol] 8.4 fL Normal 6.7-10.[address] [facility] Comment on above: Performed By: #### C BC ####[address] [address] Platelets (Bld) [#/Vol] 300 x10*3/mcL Normal 150-[address] [facility] Comment on above: Performed By: #### C BC ####[address] [address] RBC (Bld) [#/Vol] 4.62 x10*6/mcL Normal 3.80-5.20 [facility] Comment on above: Performed By: #### C BC ####[address] [address] WBC (Bld) [#/Vol] 7.5 x10*3/mcL Normal 4.5-11.0 [facility] Comment on above: Performed By: #### C BC ####[address] [address] CMPon 01-12-2019 Albumin [Mass/Vol] 4.3 g/dL Normal 3.2-4.9 [facility] Comment on above: Result Comment: [facility] Laboratory updated the methodology used for albumin testing on 10/28/17. Albumin measurement was performed using a bromcresol purple dye-binding assay. Performed By: #### C OMP ####[address] [address] Albumin/Globulin [Mass ratio] 1.2 {ratio} Normal 1.1-2.[address] [facility] Comment on above: Performed By: #### C OMP ####[address] [address] Alk Phos 102 IU/L High 32-[address] [facility] Comment on above: Performed By: #### C OMP ####[address] [address] ALT [Catalytic activity/Vol] 24 U/L Normal 14-[address] [facility] Comment on above: Performed By: #### C OMP ####[address] [address] Anion gap [Moles/Vol] 13 mmol/L Normal 7-[address] [facility] Comment on above: Performed By: #### C OMP ####[address] [address] AST [Catalytic activity/Vol] 24 U/L Normal 15-[address] [facility] Comment on above: Performed By: #### C OMP ####[address] [address] Bili Total 1.0 mg/dL Normal 0.3-1.[address] [facility] Comment on above: Performed By: #### C OMP ####[address] [address] Calcium [Mass/Vol] 10.3 mg/dL Normal 8.5-10.3 [facility] Comment on above: Performed By: #### C OMP ####[address] [address] Chloride [Moles/Vol] 103 mmol/L Normal 98-[address] [facility] Comment on above: Performed By: #### C OMP ####[address] [place] [address] CO2 [Moles/Vol] 30 mmol/L Normal 22-[address] [facility] Comment on above: Performed By: #### C OMP ####[address] [address] Creatinine [Mass/Vol] 0.91 mg/dL Normal 0.44-1.[address] [facility] Comment on above: Performed By: #### C OMP ####[address] [address] Glucose [Mass/Vol] 91 mg/dL Normal 74-118 [facility] Comment on above: Performed By: #### C OMP ####[address] [address] Potassium [Moles/Vol] 4.1 mmol/L Normal 3.4-4.[address] [facility] Comment on above: Performed By: #### C OMP ####[address] [address] Protein [Mass/Vol] 8.0 g/dL Normal 6.5-8.1 [facility] Comment on above: Performed By: #### C OMP ####[address] [address] Sodium [Moles/Vol] 142 mmol/L Normal 133-142 [facility] Comment on above: Performed By: #### C OMP ####[address] [address] Urea nitrogen [Mass/Vol] 20 mg/dL Normal 8-[address] [facility] Comment on above: Performed By: #### C OMP ####[address] [address] Urea nitrogen/Creatinin e [Mass ratio] 22.0 mg/mg High 10.0-20.[address] [facility] Comment on above: Performed By: #### C OMP ####[address] [address] Diff Autoon 01-12-2019 Baso Absolute 0.1 x10*3/mcL Normal 0.0-0.2 [facility] Comment on above: Performed By: #### . Automated Diff ####[address] [address] Basophils/100 WBC (Bld) 1.0 % Normal 0.0-1.[address] [facility] Comment on above: Performed By: #### . Automated Diff ####[address] [address] Eos Absolute 0.1 x10*3/mcL Normal 0.0-0.[address] [facility] Comment on above: Performed By: #### . Automated Diff ####[address] [address] Eosinophils/100 WBC (Bld) 1.9 % Normal 0.0-5.[address] [facility] Comment on above: Performed By: #### . Automated Diff ####[address] [address] Lymphocytes (Bld) [#/Vol] 2.4 x10*3/mcL Normal 1.0-4.[address] [facility] Comment on above: Performed By: #### . Automated Diff ####[address] [address] Lymphocytes/100 WBC (Bld) 32.0 % Normal 27.2-40.[address] [facility] Comment on above: Performed By: #### . Automated Diff ####[address] [address] [place] Absolute 0.4 x10*3/mcL Normal 0.1-1.1 [facility] Comment on above: Performed By: #### . Automated Diff ####[address] [address] Monocytes/100 WBC (Bld) 5.9 % Normal 3.7-11.[address] [facility] Comment on above: Performed By: #### . Automated Diff ####[address] [address] Neutro Absolute 4.4 x10*3/mcL Normal 1.8-7.7 [facility] Comment on above: Performed By: #### . Automated Diff ####[address] [address] Neutro Auto 59.2 % Normal 47.2-70.[address] [facility] Comment on above: Performed By: #### . Automated Diff ####[address] [address] PTon 01-12-2019 INR Coag (PPP) [Relative time] 1.0 {INR} Normal <=3.[address] [facility] Comment on above: Result Comment: INR has no normal range. INR Therapeutic range is: 2.0-3.0 (AF, CVA, TIAs, DVT prophylaxis, acute DVT) 2.5-3.5 ([facility] heart valves, recurrent thrombosis/emboli) Performed By: #### P TINR ####[address] [address] PT Coag (PPP) [Time] 10.2 s Normal 9.2-11.[address] [facility] Comment on above: Performed By: #### P TINR ####[address] [address] PTTon 01-12-2019 aPTT Coag (Bld) [Time] 22.3 s Normal 20.6-28.[address] [facility] Comment on above: Performed By: #### P TT ####[address] [address] UA w Culture if Indon 2018 Color (U) Yellow Normal [facility] Comment on above: Performed By: #### U CI ####[address] [address] Glucose (U) [Mass/Vol] Negative Normal Negative [facility] Comment on above: Performed By: #### U CI ####[address] [address] Ketones Ql (U) Negative Normal Negative [facility] Comment on above: Performed By: #### U CI ####[address] [address] UA Blood Negative Normal Negative [facility] Comment on above: Performed By: #### U CI ####[address] [address] UA Clarity Clear Normal [facility] Comment on above: Performed By: #### U CI ####[address] [address] UA Leukocyte Esterase Small Abnormal Negative [facility] Comment on above: Performed By: #### U CI ####[address] [address] UA Nitrite Negative Normal Negative [facility] Comment on above: Performed By: #### U CI ####[place] [id number] UA pH 5.0 Normal 4.5 - 7.[address] [facility] Comment on above: Performed By: #### U CI ####[address] [address] UA Protein Negative Normal Negative [facility] Comment on above: Performed By: #### U CI ####[place] [address] UA Source Clean Catch Normal [facility] Comment on above: Performed By: #### U CI ####[address] [address] UA Spec Grav 1.023 Normal 1.003-1.[address] [facility] Comment on above: Performed By: #### U CI ####[address] [address] UA Urobilinogen 0.2 mg/dL Normal 0.2 - 1.[address] [facility] Comment on above: Performed By: #### U CI ####[place] [id number] Urobilinogen Qn (U) Negative Normal Negative [facility] Comment on above: Performed By: #### U CI ####[place] [id number] Neurosurgery Office/Clinic Vero boyle 01-11-2019 Neurosurgery Office/Clinic Note Chief Complaint PT STATES- BACK PAIN History of Present Illness Patient is a pleasant 53-year-old female with a history of hypertension and hyperlipidemia, who presents to the outpatient neurosurgical clinic today accompanied by her , for follow up and surgical discussion on behalf of complaints of left lower extremity lumbar radiculopathy. Patient reports the abrupt onset of symptoms approximately 8 weeks ago without precipitating injury. She states symptoms have been stable since onset with mild worsening despite extensive attempts at conservative management. Patient currently describes left gluteal pain with radiation into the left posterior thigh to the level of the knee with rare associated paresthesias. Patient states her pain is intermittent, but is worse with sitting and periods of extended walking. She denies radiation of pain distal to the left knee. She denies numbness in the left lower extremity. She denies significant axial lumbar pain. She denies right gluteal pain or right lower extremity radicular pain. She denies numbness or paresthesias in her lower extremities. She denies motor weakness in the lower extremities. She denies bowel/bladder incontinence or saddle paresthesias. Patient denies significant cervical or thoracic pain. She denies upper extremity or thoracic radicular pain. She denies numbness or paresthesias in her upper extremities or chest wall/thorax. Patient denies motor weakness in the upper extremities, decreased dexterity, or gait disturbances. Patient currently rates her pain from 0-8/10 on a standard pain scale. She states it generally does not interrupt sleep, but is significantly interrupting her activity level and function. Patient states her pain has been refractory to attempts at oral steroids and gabapentin. She has participated in a partial course of physical therapy without benefit. In addition, patient is established with pain management and underwent left L4 5 transforaminal BRIGID's on 12/14/18 and 12/30/18 with a left S1 selective nerve root block on 12/30/18 without significant benefit. MRI of the lumbosacral spine from 12/10/18 reveals multilevel degenerative changes with a large left L5-S1 paracentral disc herniation contributing to advanced left L5-S1 lateral recess stenosis with compression of the left S1 nerve root. Flexion/extension films of the lumbosacral spine from 11/2018 appear stable. Review of Systems Constitutional: [No fevers, chills, sweats] Eye: [No recent visual problems] Respiratory: [No shortness of breath, cough] Vascular: [No edema, erythema, discoloration] Cardiovascular: [No Chest pain, palpitations, syncope] Neuro: [No headaches, dizziness] Gastrointestinal: [No nausea, vomiting, diarrhea] Genitourinary: [No hematuria] Physical Exam Vitals & Measurements BP: 128/78 HT: 162 cm WT: 69 kg DOSE WT: 69 kg BMI: 26.29 Additional Vitals Body Mass Index Measured: 26.29 kg/m2 Peripheral Pulse Rate: 80 bpm BP Position/Location: Sitting, Left arm General: [Alert and oriented, well nourished, no acute distress]. Eye: [normal conjunctiva, no scleral icterus]. HENT: [normocephalic, atraumatic, oral mucosa pink and moist, dentition intact]. Neck: [Supple]. Pulmonary: [non-labored respiration]. Cardiovascular: [no edema, strong pulses with rapid capillary refill]. Skin: [Normal temperature and texture; no rashes; no digit clubbing or cyanosis]. Psychiatric: [Appropriate judgment and insight, appropriate mood and affect]. Upon entering the exam room, patient is uncomfortable/painful appearing and seated with her left gluteal region raised off the chair in an attempt to alleviate pain. The thoracolumbar spine is without deformities. No significant myospasms or tenderness to palpation. Thoracolumbar spine is nontender to percussion. Bilateral sacroiliac regions are nontender to palpation. Moderate restriction in range of motion of the lumbosacral spine with increase in pain with flexion and extension. Bilateral hips are nontender to palpation with negative hip pointer signs. Positive left lower extremity straight leg raise. Negative right lower extremity straight leg raise. Negative reverse straight leg raise and femoral stretch test bilaterally. Muscle strength is 5 out of 5 and equal bilateral lower extremities. DTRs are 2/4 and equal bilateral lower extremities. No myelopathic features are noted. Gait is antalgic with full ability to toe and heel walk. Assessment/Plan 1. Lumbar radiculopathy 2. Degenerative disc disease, lumbar 3. Lumbar disc herniation At this time, patient presents with an 8 week history of a clinical syndrome consistent with left S1 radiculopathy attributed to a large left L5-S1 paracentral disc herniation contributing to advanced left L5-S1 lateral recess stenosis with compression of the left S1 nerve root. Given the sizable nature of the disc herniation, the rather prominent nature of patient's pain, and patient's failure to respond to adequate attempts at conservative management including oral medication, physical therapy, and injection modalities, it is felt reasonable to offer definitive surgical intervention via left L5-S1 MIS microdiscectomy. Patient is educated on the recommended surgical procedure and expected postoperative course. Patient is educated on the risks of surgery including, but not limited to, infection, blood loss, CSF leak, nerve injury, paralysis, refractory pain/incomplete benefit, post-decompressive neuritis, recurrent disc herniation, development of worsened structural abnormalities at the adjacent segments demanding of additional surgical intervention in the future, and development of instability. Patient is educated on general risks of surgery including poor anesthesia response, coma, stroke, DE, DVT/PE, and . Patient is offered a second neurosurgical opinion, but declines. After discussion, patient wishes to proceed with left L5-S1 MIS microdiscectomy in the near future with Dr. Glover at [facility]. Patient has been holding NSAIDs for the past week, therefore will be assigned a tentative surgical date in the near future. The appropriate preadmission testing and clearances will be obtained. Patient is advised to hold all aspirin, NSAIDs and OTC/herbal supplements in the interval between now and surgery. Patient is to call with any changes, problems, or concerns. Patient states understanding and is in agreement with the above-stated plan. Patient is seen alongside Dr. Glover who personally spoke with and examined the patient at office visit today. Problem List/Past Medical History Ongoing Allergic rhinitis Degenerative disc disease, lumbar Hypercholesterolemia Hypertension Lumbar disc herniation Lumbar radiculopathy Historical No qualifying data Procedure/Surgical History Lumbar/Sacral Transforaminal Epidural Steroid Injection (Left) (12/14/2018) Lumbar/Sacral Transforaminal Epidural Steroid Injection (Left) (12/30/2018) Medications Flonase, Nasal, Daily, PRN folic acid, 0.4 mg, Oral, Daily gabapentin 100 mg oral capsule, 1-2 caps, Oral, HS (at bedtime) Lipitor 40 mg oral tablet, 40 mg, 1 tabs, Oral, Daily multivitamin, Daily Norvasc 2.5 mg oral tablet, 2.5 mg, 1 tabs, Oral, Daily Singulair 10 mg oral tablet, 10 mg, 1 tabs, Oral, Daily, PRN Vitamin C, Daily Allergies Coreg (heart race) Vicodin (Itching) Social History Alcohol 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 Substance Abuse Denies All Tobacco Never (less than 100 in lifetime) Use:. Family History Alzheimer's disease: Mother. Cancer of colon: Mother. Skin cancer: Father. Diagnostic Results No qualifying data available (XRay) No qualifying data available (CT) No qualifying data available (Ultrasound) No qualifying data available (MRI) Electronically signed by _ Elizabeth Beard PA-Czarahul Hernandez 01/11/19 13:[address] [facility] Neurosurgery Office/Clinic Note Chief Complaint PT STATES- BACK PAIN Physical Exam Vitals & Measurements BP: 128/78 HT: 162 cm WT: 69 kg DOSE WT: 69 kg BMI: 26.29 Additional Vitals Body Mass Index Measured: 26.29 kg/m2 Peripheral Pulse Rate: 80 bpm BP Position/Location: Sitting, Left arm Assessment/Plan 1. Lumbar radiculopathy 2. Degenerative disc disease, lumbar 3. Lumbar disc herniation Pleasant 53-year-old female who is accompanied by her . He has a history of lumbar radiculopathy with chronic numbness and now she presents with classic left S1 radiculopathy ?2 and half months. Her syndrome seems to be worsening with regards to pain scores such that she is now in the mid to upper VAS scale. Features include paresthesias and radicular pain. Her exam reveals no motor neuropathy but depressed Achilles reflex and neurotension sign via straight leg raise. Imaging demonstrates a sizable interannular disc herniation causing severe lateral recess stenosis. As such, given the failure of conservative management and her escalated pain scores, she has a highly motivated to consider definitive management. The conservative alternatives are identified in the risk and benefits as well as surgical technique and postoperative recovery and restrictions outlined to the patient. Risk including the risk of procedure including infection, bleeding, CSF leak, neurologic injury, neuropathic pain syndrome, peridural fibrosis, failure for improvement, incomplete benefit, new neurologic deficit, spinal instability, coma, , paralysis, deep venous thrombosis, pulmonary embolism as well as recurrent disc herniation and reoperation, either delayed or acute. She acknowledges and wishes to proceed and her is in agreement. She has terminated NSAIDs in anticipation of surgery. Surgery will be anticipated next week This surgeon personally met with the patient and performed erected exam as well as history and reviewed imaging and perform surgical consent. Patient and are grateful and all questions answered to their satisfaction Problem List/Past Medical History Ongoing Allergic rhinitis Degenerative disc disease, lumbar Hypercholesterolemia Hypertension Lumbar disc herniation Lumbar radiculopathy Historical No qualifying data Procedure/Surgical History Lumbar/Sacral Transforaminal Epidural Steroid Injection (Left) (12/14/2018) Lumbar/Sacral Transforaminal Epidural Steroid Injection (Left) (12/30/2018) Medications Flonase, Nasal, Daily, PRN folic acid, 0.4 mg, Oral, Daily gabapentin 100 mg oral capsule, 1-2 caps, Oral, HS (at bedtime) Lipitor 40 mg oral tablet, 40 mg, 1 tabs, Oral, Daily multivitamin, Daily Norvasc 2.5 mg oral tablet, 2.5 mg, 1 tabs, Oral, Daily Singulair 10 mg oral tablet, 10 mg, 1 tabs, Oral, Daily, PRN Vitamin C, Daily Allergies Coreg (heart race) Vicodin (Itching) Social History Alcohol 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 Substance Abuse Denies All Tobacco Never (less than 100 in lifetime) Use:. Family History Alzheimer's disease: Mother. Cancer of colon: Mother. Skin cancer: Father. Electronically signed by _ Adalberto HODGE MD, [place] 01/11/19 13:[address] [facility] Provider Letteron 01-11-2019 Provider Letter (Inserted Image. Lisa ble to display) Miguel Marte, [address] [place] [address] Re: Ema Yanes Date of Visit: 01/11/2019 Dear Miguel Marte, Thank you for referring Ema to our office. Attached you will find my office note and my findings. Please let me know if you have any questions or concerns. Sincerely, Anna Ickes, PA-C [facility] [address] [place] [id number] The following document(s) were included in the letter: January 11, 2019 13:24:20 EDT - (01/11/2019) Office Visit Note [facility] Provider Letter (Inserted Image. Lisa ble to display) Miguel Marte DO [address] [place] [address] Re: Ema Yanes Date of Visit: 01/11/2019 Dear Miguel Marte, Let me know if you have any questions or concerns. Sincerely, AYESHA Donnelly MD Providers: The following document(s) were included in the letter: January 11, 2019 13:52:55 EDT - (01/11/2019) Neurosurgery clinic note [facility] Neurosurgery Office/Clinic [place] 01-07-2019 Neurosurgery Office/Clinic Note Chief Complaint NEW PT, PT STATES- BACK PAIN, RADIATING INTO LT LEG History of Present Illness Patient is a pleasant 53-year-old female with a history of hypertension and hyperlipidemia, who presents to the outpatient neurosurgical clinic today accompanied by her , as a new patient on behalf of complaints of left lower extremity lumbar radiculopathy. Patient reports the abrupt onset of symptoms approximately 8 weeks ago without precipitating injury. She states symptoms have been stable since onset and have not improved despite extensive attempts at conservative management. Patient currently describes left gluteal pain with radiation into the left posterior calf to the level of the knee with rare associated paresthesias. Patient states her pain is intermittent, but is worse with sitting and periods of extended walking. She denies radiation of pain distal to the left knee. She denies numbness in the left lower extremity. She denies significant axial lumbar pain. She denies right gluteal pain or right lower extremity radicular pain. She denies numbness or paresthesias in her lower extremities. She denies motor weakness in the lower extremities. She denies bowel/bladder incontinence or saddle paresthesias. Patient denies significant cervical or thoracic pain. She denies upper extremity or thoracic radicular pain. She denies numbness or paresthesias in her upper extremities or chest wall/thorax. Patient denies motor weakness in the upper extremities, decreased dexterity, or gait disturbances. Patient currently rates her pain from 0-8/10 on a standard pain scale. She states it generally does not interrupt sleep, but is interrupting her activity level and function. Patient states her pain has been refractory to attempts at oral steroids and gabapentin. She has participated in a partial course of physical therapy without benefit. In addition, patient is establish with pain management and underwent left L4 5 transforaminal BRIGID's on 12/14/18 and 12/30/18 with a left S1 selective nerve root block on 12/30/18 without significant benefit. PAST MEDICAL HISTORY: Hypertension Hyperlipidemia Allergic rhinitis PAST SURGICAL HISTORY: None ALLERGIES: Coreg causes racing heart MEDICATIONS: See medication list SOCIAL HISTORY: Patient is . She has 2 grown children. She lives in [place]. She denies tobacco, alcohol, or recreational drugs. 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 She states no bureau of workman's compensation or third green party insurance claims based on today's office visit. FAMILY HISTORY: Cancer: Mother with colon cancer, father with skin cancer Alzheimer's: Mother Review of Systems Constitutional: [No fevers, chills, sweats] Eye: [No recent visual problems] ENMT: [No ear pain, nasal congestion, sore throat] Respiratory: [No shortness of breath, cough] Cardiovascular: [No Chest pain, palpitations, syncope] Gastrointestinal: [No nausea, vomiting, diarrhea] Genitourinary: [No hematuria] Physical Exam Vitals & Measurements BP: 142/82 HT: 162 cm WT: 69.9 kg DOSE WT: 69.9 kg BMI: 26.63 Additional Vitals Body Mass Index Measured: 26.63 kg/m2 Peripheral Pulse Rate: 76 bpm BP Position/Location: Sitting, Left arm GENERAL PHYSICAL EXAM: GENERAL: well developed, well nourished, no distress; patient is painful/uncomfortable appearing and is seated with her left gluteal region raised off of the chair in attempts to ameliorate pain HEAD: normocephalic, atraumatic EYES: anicteric, atraumatic MUCOUS MEMBRANES: Moist, no evidence of dehydration NECK: supple, full range of motion, no deformity noted; no cervical adenopathy; no carotid bruits; no tracheal deviation; no winging of the scapula; no drooping of the shoulder; no evidence of neurotension signs such as Lhermitte's or Spurling sign CHEST: clear CARDIAC: normal heart sounds no murmurs or extra sounds SHOULDER: Full range of motion on active and passive evaluation; no evidence of impingement or rotator cuff tendinopathy, negative empty can testing. PERIPHERAL NERVES: no tinel's signs carpal, cubital, or peroneal, no digital compression provocation SPINE: no evidence of scoliosis, rib hump, deformities or step-offs. No trigger points or myospasm VASCULAR: strong pulses with rapid capillary refill, no evidence of Raynaud's phenomenon, autonomic disturbance, venous insufficiency, or thoracic outlet syndrome. HIP: no Fabere's or Sunday's sign LUMBAR: range of motion restricted with increase in pain with flexion and extension; positive left lower extremity straight leg raise. Negative right lower extremity straight leg raise. Negative reverse straight leg raise and femoral stretch test bilaterally. PAIN BEHAVIOR: No evidence of Rajani's findings or overt pain behavior. NEUROLOGICAL EXAM: MENTAL STATUS: Awake alert and appropriate with normal mental status exam an executive function CRANIAL NERVES: Round reactive pupils without ophthalmoplegia, no visual field defects to confrontation, no nystagmus, no evidence of Dakota syndrome, equal facies, equal auditory perception to confrontation, bilaterally upgoing palate, midline tongue without atrophy or fasciculations and full range of motion, equal trapezial strength and sternocleidomastoid strength. MOTOR: normal tone and bulk in all groups with full power; no evidence of atrophy or fasciculations. DEEP TENDON REFLEXES: All reflexes 2+ no evidence of myelopathic features such as Nevarez's, pectoral reflex, clonus, Babinski SENSORY EXAM: No dermatomal changes to dorsal column or spinal thalamic function, no suspended sensory levels. CEREBELLAR: No lateralization, no dysmetria or dysdiadochokinesia. GAIT: Patient demonstrates full ability to toe and heel walk as well as squat/1 leg squat and demonstrates; normal base, station, stride length, and mohsen. Imaging: MRI lumbosacral spine 12/10/18: Multilevel degenerative disc disease and facet arthropathy; downwardly migrated right paracentral disc at L1-2 without overt neurocompression; large left L5-S1 paracentral disc herniation contributing to advance left L5-S1 lateral recess stenosis with compression of the left S1 nerve root X-rays left hip 11/23/18: Mild degenerative changes X-ray sacrum/coccyx 11/23/18: Mild SI degenerative changes Flexion/extension films lumbosacral spine 11/2018: Stable Assessment/Plan 1. Degenerative disc disease, lumbar 2. Lumbar radiculopathy Lumbar disc herniation At this time, patient presents with an 8 week history of a clinical syndrome consistent with left S1 radiculopathy attributed to a large left L5-S1 paracentral disc herniation contributing to advanced left L5-S1 lateral recess stenosis with compression of the left S1 nerve root. Given the sizable nature of the disc herniation, the rather prominent nature of patient's pain, and patient's failure to respond to adequate attempts at conservative management including oral medication, physical therapy, and injection modalities, she is likely a candidate for surgical consideration of left L5-S1 MIS microdiscectomy. Patient is briefly educated on said surgical procedure, expected postoperative course, and risks/benefits of surgery. After discussion, patient voices that she is highly interested in further consideration of surgical intervention, therefore for will be returned to our office next week when Dr. Glover is in clinic for further surgical discussion. Patient is offered a second neurosurgical opinion, but declines. Patient is advised in the face of potential surgical demand, that she should avoid all aspirin, NSAIDs, and [id number]/herbal supplements. In the interval between now and her follow-up, she is also to avoid lifting/pushing/pulling more than 10 pounds and avoid any heavier physical activity than walking. Patient is to call our office with any changes, problems, or concerns. Patient states understanding and is in agreement with the above-stated plan. Patient's case is discussed with Dr. Glover who is in agreement with the above-stated plan. Problem List/Past Medical History Ongoing Allergic rhinitis Degenerative disc disease, lumbar Hypercholesterolemia Hypertension Lumbar radiculopathy Historical No qualifying data Procedure/Surgical History Lumbar/Sacral Transforaminal Epidural Steroid Injection (Left) (12/14/2018) Lumbar/Sacral Transforaminal Epidural Steroid Injection (Left) (12/30/2018) Medications Flonase, Nasal, Daily, PRN folic acid, 0.4 mg, Oral, Daily gabapentin 100 mg oral capsule, 1-2 caps, Oral, HS (at bedtime) Lipitor 40 mg oral tablet, 40 mg, 1 tabs, Oral, Daily multivitamin, Daily Norvasc 2.5 mg oral tablet, 2.5 mg, 1 tabs, Oral, Daily Singulair 10 mg oral tablet, 10 mg, 1 tabs, Oral, Daily, PRN Vitamin C, Daily Allergies Coreg (heart race) Social History Alcohol 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 Substance Abuse Denies All Tobacco Never (less than 100 in lifetime) Use:. Family History Alzheimer's disease: Mother. Cancer of colon: Mother. Skin cancer: Father. Diagnostic Results No qualifying data available (XRay) No qualifying data available (CT) No qualifying data available (Ultrasound) No qualifying data available (MRI) Electronically signed by _ Anna Beard PA-C 01/07/19 12:08 EDT [facility] Provider Letteron 01-07-2019 Provider Letter (Inserted Image. Lisa ble to display) Miguel Marte, [address] [place] [address] Re: Ema Joaquín Date of Visit: 01/07/2019 Dear Miguel Marte, Thank you for referring Ema to our office. Attached you will find my office note and my findings. Please let me know if you have any questions or concerns. Sincerely, Anna Beard PA-C [facility] [address] [address] The following document(s) were included in the letter: January 07, 2019 11:54:45 EDT - (01/07/2019) Office Visit Note Letter sent Electronically signed by _ Elaine Thornton 01/07/19 12:14 EDT [facility] History and Physicalon 12-30 History and Physical History of Present Illness CHIEF COMPLAINT: Back pain HISTORY OF PRESENT ILLNESS: Debilitating spinal pain which worsens with nerve root tensioning failing conservative measures markedly impairing function indicating the appropriateness for transforaminal epidural steroid blockade. PHYSICAL EXAM: HEENT: Normocephalic, atraumatic. RESPIRATIONS: Unlabored ABDOMEN: Soft nontender MUSCULOSKELETAL: Pain that does re-create nerve root tensioning. REVIEW OF SYSTEMS: Brief review of systems was conducted. Complaints are noncontributory for cauda equina or myelopathic complaints, fever chills or sweats or unintended weight loss or gain. ASSESSMENT: Lumbar spinal stenosis with neurogenic claudication. PLAN: Neurogenic discomfort secondary to disc and spondylitic reactivity precipitating neural foraminal narrowing and lateral recess stenosis. For complaints that have failed conservative measures, candidacy has been established for epidural steroid blockade transforaminal approach for diagnostic and potential therapeutic benefit. Risks benefits alternatives have been discussed, we agree to proceed. Physical Exam Vitals & Measurements T: 36.4 ?C (Oral) RR: 16 BP: 138/81 SpO2: 97% WT: 15 kg Additional Vitals Peripheral Pulse Rate: 92 bpm This document serves as a record of the services and decisions personally performed and made by the attending provider. It was created on his/her behalf by a trained medical records secretary. The creation of this document is based on the provider?s statements to the medical records secretary. Problem List/Past Medical History Ongoing Hypercholesterolemia Hypertension Historical No qualifying data Procedure/Surgical History Lumbar/Sacral Transforaminal Epidural Steroid Injection (Left) (12/14/2018) Medications Home Flonase, Nasal, Daily, PRN folic acid, 0.4 mg, Oral, Daily Lipitor 40 mg oral tablet, 40 mg, 1 tabs, Oral, Daily multivitamin, Daily Norvasc 2.5 mg oral tablet, 2.5 mg, 1 tabs, Oral, Daily Singulair 10 mg oral tablet, 10 mg, 1 tabs, Oral, Daily, PRN Vitamin C, Daily Inpatient No active inpatient medications Prescriptions gabapentin 100 mg oral capsule, 1-2 caps, Oral, HS (at bedtime) Allergies Coreg (heart race) Social History Alcohol 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 Substance Abuse Denies All Tobacco Never (less than 100 in lifetime) Use:. Family History Alzheimer's disease: Mother. Cancer of colon: Mother. Skin cancer: Father. Lab Results Microbiology No qualifying data available. Diagnostic Results Diagnostic Radiology No qualifying data available. Computed Tomography No qualifying data available. Ultrasound No qualifying data available. Magnetic Resonance Imaging No qualifying data available. Nuclear Medicine No qualifying data available. Electronically signed by _ Chaya Najera MD 12/30/18 07:16 EDT Electronically signed by _ Lori Vaca 12/30/2018 07:[address] [facility] XR Hip 2-3 Views Lefton XR Hip 2-3 Views Left Procedure: AP view of the pelvis and frog-leg lateral view of the left hip. Clinical Information: 53-year-old female with left hip pain. Comparison: None. Findings: Bones: No acute fracture, dislocation, or aggressive abnormality. Joints: Mild sacroiliac (SI) and hip degenerative changes. Soft tissues: Likely phleboliths throughout the lower pelvis. IMPRESSION: Mild SI and hip degenerative changes. Final Dictated by: Db Oviedo MD Dictated DT/TM: 11/24/2018 7:46 am Signed by: Db Oviedo MD Signed (Electronic Signature): 11/24/2018 7:47 am (If Report Is Signed, Electronically Signed in Other Vendor System) Normal [facility] XR Sacrum/Coccyx Minimum 2 V iewson 11-24-2018 XR Sacrum/Coccyx Minimum 2 Views Procedure: AP and lateral views of each of the sacrum and coccyx. Clinical Information: 53-year-old female with low back pain. Comparison: None. Findings: Bones: No acute fracture, dislocation, or aggressive abnormality. Joints: Mild sacroiliac (SI) joint degenerative changes. Soft tissues: Multiple lower pelvic likely phleboliths. IMPRESSION: Mild SI joint degenerative changes. Final Dictated by: Db Oviedo MD Dictated DT/TM: 11/24/2018 7:47 am Signed by: Db Oviedo MD Signed (Electronic Signature): 11/24/2018 7:48 am (If Report Is Signed, Electronically Signed in Other Vendor System) Normal [facility] XR Spine Lumbosacral 2/3 Vie ws w/Bendingon 11-24-2018 XR Spine Lumbosacral 2/3 Views w/Bending Procedure: AP, neutral lateral, flexion lateral, and extension lateral views of the lumbar spine. Clinical Information: 53-year-old female with low back pain. Comparison: None. Findings: Bones: No radiographic evidence for fracture, subluxation, dynamic subluxation, or aggressive abnormality. Intervertebral discs: No substantial height loss or endplate osteophytes. Facet joints: Grossly moderate degenerative osteoarthrosis at L3-4 through L5-S1. Soft tissues: Mild atherosclerotic calcifications. IMPRESSION: Grossly moderate multilevel facet osteoarthrosis. Final Dictated by: Db Oviedo MD Dictated DT/TM: 11/24/2018 7:45 am Signed by: Db Oviedo MD Signed (Electronic Signature): 11/24/2018 7:46 am (If Report Is Signed, Electronically Signed in Other Vendor System) Normal [facility] Pain Management Office/Clini c Noteon 11-23-2018 Pain Management Office/Clinic Note Chief Complaint low back pain History of Present Illness AM Behavior: Worse PM Behavior: Worse PM Date: 11/15/18 PM Timing: sudden onset low back pain PM Related: denies injury, moved out of someone's way and felt twinge of pain in low back PM Past Tx: rest PM Pain location and laterality: low back pain, left >right PM Pain quality: Sharp PM Pain Pattern: Waxing/waning PM Pain Rate with Activity: 6 Bending: Aggravating Lying: Alleviating Sitting: Aggravating Stairs: Aggravating Transitioning: Aggravating PM Sensory: denies numbness/tingling, no radiation of pain Date Chiropractor: N/A Date PT: N/A Date Injections: N/A Date Surgery: N/A PM testing appt: No PM Bowel Bladder: Denies PM Demeanor: Pleasant PM Distress: Mild PM Appearance: Appropriate PM Cognitive: No PM Safe: Yes PM Hurting: No Family Hx: N/A Personal Hx: N/A Sexual Abuse Hx: No Mental Health.1: N/A Mental Health.2: N/A Total Score: 0 Physical Exam Vitals & Measurements RR: 16 BP: 159/105 HT: 162 cm WT: 68.2 kg BMI: 25.99 HEENT: normocephalic/atraumatic . Trachea in the midline. RESPIRATIONS: Unlabored ABDOMEN: Soft nontender EXTREMITIES: +2 distal pulses, Refill brisk, Homans sign absent. INSPECTION: No scars or rashes are present. There is no gross visual deformity. NEUROLOGIC: Sensory loss is appreciated in the left L5 dermatome. There is 4 out of 5 weakness present in the left extensor hallux longus. MUSCULOSKELETAL: Positive straight leg raising at 50? in the left, there is pain with SI joint palpation and subtle discomfort with scouring of the hip.. Additional Vitals Peripheral Pulse Rate: 97 bpm BP Position/Location: Sitting, Left arm Assessment/Plan 1. Sacroiliitis 2. Lumbar disc displacement without myelopathy 3. Hip joint pain Physician Comments The patient presents with pain pursuant to findings indicative of left L5 radiculitis with compensatory hip and sacrum pain.. The patient has engaged in a weeks of spinal exercise within the last 3 months including a 6 week trial of activity modification which produced suboptimal result. The patient has trialed 3 months of of oral analgesic therapy including nonsteroidal anti-inflammatory agents and muscle relaxant modalities with incomplete relief. We will obtain x-rays of left hip sacrum and lumbar. We have agreed to trial prednisone burst therapy to provide analgesia improvement and improve life quality and function. We have discussed benefits risks and alternatives. We discussed salient features of opioid risk management including the potential for tolerance, dependence and addiction as well as behaviors to avoid including operating machinery, including driving while impaired. The patient agreed to proceed. We have discussed benefits risks and alternatives of treatment. All concerns were addressed and questions were answered. We will follow-up with our patient after the requested. We will keep you abreast of their progress. Thank you for allowing us to to render an opinion in the care of your kind patient. Please do not hesitate to contact our service if you have any questions or concerns regarding the treatment options rendered. This chart was created with voice-recognition and may contain silver brazer or phonetic error. Warmest regards, Chaya Najera M.D. 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 Family History Alzheimer's disease: Mother. Cancer of colon: Mother. Skin cancer: Father. Diagnostic Results No qualifying data available (XRay) No qualifying data available (CT) No qualifying data available (Ultrasound) No qualifying data available (MRI) Electronically signed by _ Chaya Najera MD 11/23/18 16:[address] [facility] Social History Date Type Detail Facility Start: 10-15-2020 Smoker (finding) [facility] Female [facility] Evaluation + Plan note 09-07-2021 Note Date & Type Note Facility 09-07-2021 Evaluation + Plan note Diagnostic Tests PendingPAP [id number] IG Apt HPV,rfx 16/18,45 11/07/21 [facility] Hospital course Narrative Note Date & Type Note Facility Hospital course Narrative No data available for this section [facility] Hospital Discharge instructions Note Date & Type Note Facility Hospital Discharge instructions No data available for this section [facility] Progress note Note Date & Type Note Facility Progress note No data available for this section [facility] Summary Purpose Family History No Family History Records FoundNo Family History Records FoundNo Family History Records FoundNo Family History Records FoundNo Family History Records FoundNo Family History Records Found Advance Directives No Advanced Directives Records FoundNo Advanced Directives Records FoundNo Advanced Directives Records FoundNo Advanced Directives Records FoundNo Advanced Directives Records FoundNo Advanced Directives Records Found Procedure Findings Note PROCEDURE: Left L4, L5 trans foraminal epidural steroid injection under fluoroscopic guidance. Physician: Chaya Najera M.D. PRE- AND POSTOPERATIVE DIAGNOSES: Pain secondary to lumbar spinal stenosis with neurogenic claudication. SOLUTION USED: 80 mg Depo-Medrol, 1 mL 2% preservative free lidocaine, 1 mL 0.9% normal saline, 1 mL 0.125 preservative free Marcaine, 100 MCG Clonidine. COMPLICATIONS: None. ANESTHESIA: Local. PROCEDURE DESCRIPTION: After informed consent was obtained, the patient was brought to the operating room and was placed in the prone position. Standard monitoring was applied. The skin overlying the area was prepped and draped in standard sterile fashion. A 25-gauge spinal needle was inserted through the skin and directed toward the indicated nerve root foramen under fluoroscopic guidance. Omnipaque dye 0.3 mL was injected and appropriate epidural distribution was established without intravascular or intrathecal spread. Subsequently, 1 mL of the corticosteroid and loca (more content not included)... Additional Source Comments INFORMATION SOURCE (unrecogn ized section and content) DATE CREATED AUTHOR 03/10/2019 [facility] DATE CREATED AUTHOR AUTHOR'S ORGANIZ ATION 11/21/2019 [facility] DATE CREATED AUTHOR AUTHOR'S ORGANIZ ATION 05/01/2023 [facility] DATE CREATED AUTHOR AUTHOR'S ORGANIZ ATION 08/09/2023 [facility] DATE CREATED AUTHOR AUTHOR'S ORGANIZ ATION 08/31/2023 [facility] DATE CREATED AUTHOR AUTHOR'S ORGANIZ ATION 09/11/2023 [facility] Care Team (unrecognized sect ion and content) Personnel Name: Kiran Tony DO Address: [address] [place] [address] FOR RECORDS PERTAINING TO PATIENTS WHO ARE OR HAVE BEEN ENROLLED IN A CHEMICAL DEPENDENCY/SUBSTANCEABUSE PROGRAM, SOME INFORMATION MAY BE OMITTED. This clinical summary was aggregated from multiple sources. Caution should be exercised in using it in the provision of clinical care. This summary normalizes information from multiple sources, and as a consequence, information in this document may materially change the coding, format and clinical context of patient data. In addition, data may be omitted in some cases. CLINICAL DECISIONS SHOULD BE BASED ON THE PRIMARY CLINICAL RECORDS. [facility]. provides no warranty or guarantee of the accuracy or completeness of information in this document.
== END 2023-09-11 12:58 | disposition home or self-care (01) ==
LOC: US 12:57
PROVIDERS: PCP Family Medicine; Visit Provider Obstetrics & Gynecology
DX: N85.9 Noninflammatory disorder of uterus, unspecified (principal)
CPT/HCPCS: 76830; 76856